=== PATIENT | male | born 1960 | race Asian ===

== ENCOUNTER 2023-04-17 13:58 | Emergency (ER) | payer OTHER, SELFPAY ==
[2023-04-17 14:47] VITALS: BP 136/81; PULSE 76; RESP 14; TEMP 36.4; O2SAT 97; BMI 26.6
--- NOTE | 2023-04-17 14:47 | ED.GENADULT ---
HPI - General Adult General Chief complaint: Skin/Abscess/Foreign Body Stated complaint: Stung by bee swollen Time Seen by Provider: 04/17/23 16:47 Related Data Allergies Allergy/AdvReac Type Severity Reaction Status Date / Time Unable to Assess Allergy Verified 04/17/23 14:49 PMF Social History Social History Advance Directives: No Advance Directives Information Provided: No Physical Exam ED Vital Signs: BMI result Body Mass Index 26.6 Course Course Course Narrative: This is an RME: Additional HPI, ROS, PE not included below will be deferred to primary provider. 63 yo male presenting after 2 bee stings to the neck and one to the right shoulder. Has never been stung before. Plan - Benadryl Discharge Plan Discharge Clinical Impression: Eloped from emergency department Patient Disposition: Left W/O Completing Treatment Discharge Date/Time: 04/17/23 17:31
== END 2023-04-17 17:31 | disposition left against medical advice (07) ==
PROVIDERS: Emergency Provider Emergency Medicine
DX: T63.441A Toxic effect of venom of bees, accidental (unintentional), initial encounter (principal); Y92.9 Unspecified place or not applicable
CPT/HCPCS: 99281